=== PATIENT | female | born 1960 | race American Indian/Alaskan Native ===

== ENCOUNTER 2019-04-20 09:31 | Emergency (ER) | payer OTHER ==
[2019-04-20 09:52] VITALS: BP 141/74
[2019-04-20] MEDS ORDERED: MECLIZINE 25 MG TAB PO ONE (10:12)
--- NOTE | 2019-04-20 10:51 | Cat Scan Report ---
CT head/brain wo con INDICATION / CLINICAL INFORMATION: 58 years Female; dizziness with SHAW. TECHNIQUE: Routine CT head without contrast. All CT scans at this location are performed using CT dos e reduction for ALARA by means of automated exposure control. COMPARISON: None. FINDINGS: BRAIN / INTRACRANIAL CONTENTS: The brain demonstrate appropriate attenuation. The ventricular system is within normal limits in size and configuration. ORBITS: No significant abnormality of visualized orbits. SINUSES / MASTOIDS: No significant abnormality the visualized paranasal sinuses or mastoid air cells. CRANIOCERVICAL JUNCTION: No significant abnormality. ADDITIONAL FINDINGS: None. IMPRESSION: 1. There is no CT evidence of acute intracranial process. Signer Name: Josse Cast MD Signed: 04/20/2019 10:47 AM Workstation Name: [id number]
--- NOTE | 2019-04-20 11:53 | Emergency Department Report ---
ED Dizziness HPI - General Chief Complaint: Dizziness Stated Complaint: NAUSEA/HEADACHE/DIZZY Time Seen by Provider: 04/20/19 09:58 Source: patient Mode of arrival: Ambulatory Limitations: No Limitations - History of Present Illness Initial Comments: Patient is a 58-year-old [place] female who is here complaining of dizziness. Patient has just a history of hypertension and high cholesterol. Patient states that for the past 3 month she's had off and on episodes of vertigo. Patient states that before and today the longest episode was approx imately 3 days where she was dizzy with standing and turning her head. This resolved spontaneously. Symptoms have been coming on intermittently since. Patient saw her primary care physician and was given a prescription for Antivert but she states that she didn't feel like it was working so she discontinued use. Patient has some associated nausea when she has the dizziness. She's had just only a few episodes of actual vomiting. She denies fevers chills or neck stiffness. Patient intermittently does also have headaches. Patient called her primary care physician and was told to come to the emergency department for MRI - Related Data Previous Rx's Medication Instructions Recorded Last Taken Type Meclizine [Antivert] 25 mg PO TID PRN #20 tablet 04/20/19 Unknown Rx Allergies Allergy/AdvReac Type Severity Reaction Status Date / Time acetaminophen [From Percocet] Allergy Hives Verified 04/20/19 09:39 oxycodone [From Percocet] Allergy Hives Verified 04/20/19 09:39 ED Review of Systems ROS: Stated complaint: NAUSEA/HEADACHE/DIZZY Other details as noted in HPI Comment: All other systems reviewed and negative ED Past Medical Hx - Past Medical History Previous Medical History?: Yes Hx Hypertension: Yes Additional medical history: high cholesterol - Surgical History Past Surgical History?: Yes Additional Surgical History: hysterectomy - Social History Smoking Status: Never Smoker Substance Use Type: None - Medications Home Medications: Home Medications Medication Instructions Recorded Confirmed Last Taken Type Meclizine [Antivert] 25 mg PO TID PRN #20 tablet 04/20/19 Unknown Rx ED Physical Exam - General Limitations: No Limitations General appearance: alert, in no apparent distress - Head Head exam: Present: atraumatic, normocephalic - Eye Eye exam: Present: normal appearance - ENT ENT exam: Present: mucous membranes moist - Neck Neck exam: Present: normal inspection - Respiratory Respiratory exam: Present: normal lung sounds bilaterally. Absent: respiratory distress, wheezes, rales, rhonchi - Cardiovascular Cardiovascular Exam: Present: regular rate, normal rhythm, normal heart sounds. Absent: systolic murmur, diastolic murmur, rubs, gallop - GI/Abdominal GI/Abdominal exam: Present: soft, normal bowel sounds. Absent: distended, tenderness, guarding, rebound - Extremities Exam Extremities exam: Present: normal inspection - Back Exam Back exam: Present: normal inspection - Neurological Exam Neurological exam: Present: alert, oriented X3, other (positive [place]Hallpike) - Psychiatric Psychiatric exam: Present: normal affect, normal mood - Skin Skin exam: Present: warm, dry, intact, normal color. Absent: rash ED Course Vital Signs 04/20/19 09:48 Temperature 98.3 F Pulse Rate 87 Respiratory 18 Rate Blood Pressure 141/74 O2 Sat by Pulse 96 Oximetry ED Medical Decision Making - Radiology Data CT head/brain wo con INDICATION / CLINICAL INFORMATION: 58 years Female; dizziness with SHAW. TECHNIQUE: Routine CT head without contrast. All CT scans at this location are performed using CT dose reduction for ALARA by means of automated exposure control. COMPARISON: None. FINDINGS: BRAIN / INTRACRANIAL CONTENTS: The brain demonstrate appropriate attenuation. The ventricular system is within normal limits in size and configuration. ORBITS: No significant abnormality of visualized orbits. SINUSES / MASTOIDS: No significant abnormality the visualized paranasal sinuses or mastoid air cells. CRANIOCERVICAL JUNCTION: No significant abnormality. ADDITIONAL FINDINGS: None. IMPRESSION: 1. There is no CT evidence of acute intracranial process. Signer Name: Josse Cast MD Signed: 04/20/2019 10:47 AM Workstation Name: [id number] - Medical Decision Making She was given 50 mg of meclizine and she states that she does feel better. Patient's CT was negative for mass effect or subacute or chronic ischemic changes. Patient referred to ENT and the patient should continue with the meclizine as prescribed. Critical care attestation.: If time is entered above; I have spent that time in minutes in the direct care of this critically ill patient, excluding procedure time. ED Disposition Clinical Impression: Vertigo Disposition: DC-01 TO HOME OR SELFCARE Is pt being admited?: No Does the pt Need Aspirin: No Condition: Stable Instructions: Vertigo (ED) Referrals: JULIANA RAMON MD [Staff Physician] - 3-5 Days Time of Disposition: 11:53
== END 2019-04-20 12:02 | disposition home or self-care (01) ==
LOC: ED 09:31
DX: R42 Dizziness and giddiness (principal); R51 Headache; R11.2 Nausea with vomiting, unspecified; I10 Essential (primary) hypertension; E78.00 Pure hypercholesterolemia, unspecified; Z90.710 Acquired absence of both cervix and uterus; Z79.899 Other long term (current) drug therapy; Z88.8 Allergy status to other drugs, medicaments and biological substances; Z88.5 Allergy status to narcotic agent
CPT/HCPCS: 70450